=== PATIENT | male | born 1995 | race Hispanic/Latino ===

== ENCOUNTER 2023-09-03 14:55 | Emergency (ER) | payer SELFPAY ==
[~2023-09-03] VITALS: Ht 170.2 cm; Wt 131.5 kg
[~2023-09-03 14:55] MED LIST: MEDDOSEPAK PO; NO HOME MEDS
[2023-09-03] MEDS ORDERED: ZITHROMAX500 MG PO (20:23)
[2023-09-03] MEDS ORDERED: BENZONATATE200 MG PO ×2 (20:23→20:31)
[2023-09-03 20:32] VITALS: BP 114/86
== END 2023-09-03 20:32 | disposition home or self-care (01) | DRG 203 ==
LOC: ED 14:55
DX: J40 Bronchitis, not specified as acute or chronic (principal); Z20.822 Contact with and (suspected) exposure to COVID-19